=== PATIENT | female | born 1965 | race Caucasian/White ===

== ENCOUNTER 2017-09-16 21:42 | Observation (INO) | payer OTHER ==
[~2017-09-16] VITALS: Ht 162.6 cm; Wt 81.9 kg
[~2017-09-16 21:42] MED LIST: NAPROXEN500 MG PO; PREDNISONE20 MG PO
[2017-09-16 22:23] LABS: HEMATOCRIT 38.9 % (36.0-46.0); HEMOGLOBIN 12.7 G/DL (11.9-15.5); MCH 27.5 PG (29.0-34.0); MCHC 32.6 G/DL (30.0-36.0); MCV 84.4 FL (83-99); PLATELET COUNT 263 K/uL (156-360); RBC DIS.WIDTH-CV 13.4 % (11.8-14.6); RBC DIS.WIDTH-SD 41.3 % (39-53); RED BLOOD COUNT 4.61 M/uL (3.80-5.20); WHITE BLOOD COUNT 9.1 K/uL (4.1-10.2)
[2017-09-16 22:33] LABS: CHLORIDE 106 mEq/L (99-109); POTASSIUM 4.3 mEq/L (3.7-5.4); SODIUM 142 mEq/L (136-147)
[2017-09-16 22:35] LABS: GLUCOSE 95 mg/dL (70-99)
[2017-09-16 22:39] LABS: CREATININE 0.7 mg/dL (0.6-1.3); GFR ESTIMATE (CALCULATED) > 59 mL/min/
[2017-09-16 22:40] LABS: UREA NITROGEN (BUN) 20 mg/dL (9-23)
[2017-09-16 22:45] LABS: TROP-I INTERPRETATION NEGATIVE; TROPONIN-I < 0.01 ng/mL (0.0-0.30)
[2017-09-16 23:17] LABS: ALBUMIN 4.6 g/dL (3.2-4.8)
[2017-09-16 23:19] LABS: TOTAL PROTEIN 7.7 g/dL (6.4-8.3)
[2017-09-16 23:20] LABS: D-DIMER ELISA < 150.00 ng/mLDDU (<230)
[2017-09-16 23:21] LABS: TOTAL BILIRUBIN 0.3 mg/dL (0.0-1.0)
[2017-09-16 23:22] LABS: ALKALINE PHOSPHATASE 118 IU/L (3-129)
[2017-09-16 23:25] LABS: ALT (GPT) 19 IU/L (3-49); AST (GOT) 16 IU/L (2-34); DIRECT BILIRUBIN 0.1 mg/dL (0.0-0.3)
[2017-09-16 23:26] LABS: LIPASE 6 U/L (1.0-51.0)
[2017-09-17] MEDS ORDERED: LOSARTAN POTASS50 MG PO (01:32)
[2017-09-17] MEDS ORDERED: PANTOPRAZOLE SO40 MG PO (01:33)
[2017-09-17] MEDS ORDERED: SUMATRIPTAN SU100 MG PO (01:33)
[2017-09-17] MEDS ORDERED: LO-DOSE ASPIRIN81 M2 PO (01:34)
[2017-09-17 03:05] VITALS: BP 134/74
[2017-09-17 06:58] LABS: TROP-I INTERPRETATION NEGATIVE; TROPONIN-I < 0.01 ng/mL (0.0-0.30)
[2017-09-17 07:28] VITALS: BP 141/77
[2017-09-17 11:32] VITALS: BP 154/89
[2017-09-17 12:46] LABS: TROP-I INTERPRETATION NEGATIVE; TROPONIN-I < 0.01 ng/mL (0.0-0.30)
[2017-09-17 15:23] VITALS: BP 135/77
[2017-09-17 19:00] VITALS: BP 157/85
[2017-09-17 20:03] LABS: TROP-I INTERPRETATION NEGATIVE; TROPONIN-I < 0.01 ng/mL (0.0-0.30)
[2017-09-18 00:02] VITALS: BP 128/79
[2017-09-18 04:22] VITALS: BP 123/67
[2017-09-18 07:47] VITALS: BP 121/65
[2017-09-18 12:39] VITALS: BP 147/65
[2017-09-18] MEDS ORDERED: IMDUR30 MG PO (14:22)
[2017-09-18] MEDS ORDERED: AMLODIPINE BESYL5 MG PO (14:22)
== END 2017-09-18 14:56 | disposition home or self-care (01) ==
LOC: EME 21:42 → ENRESERV 09-17 00:56 → CANRESERV 09-17 00:56 → 5WEST 09-17 01:38 → EDOF 09-17 01:38 → ENRESERV 09-17 01:39 → 5WEST 09-17 02:29
PROVIDERS: Internal Medicine
DX: R07.9 Chest pain, unspecified (principal); I16.0 Hypertensive urgency; I10 Essential (primary) hypertension; G43.909 Migraine, unspecified, not intractable, without status migrainosus; K21.9 Gastro-esophageal reflux disease without esophagitis; M51.36 Other intervertebral disc degeneration, lumbar region; E53.8 Deficiency of other specified B group vitamins; E55.9 Vitamin D deficiency, unspecified; F32.9 Major depressive disorder, single episode, unspecified
CPT/HCPCS: 70450; 70551; 71046; 80048; 80076; 83690; 83880; 84484; 85027; 85379; 93005; 99281; 99285; G0378; J1200; J1644; J2405

== ENCOUNTER 2017-10-10 05:29 | Emergency (ER) | payer OTHER ==
[~2017-10-10] VITALS: Ht 162.6 cm; Wt 79.2 kg
[~2017-10-10 05:29] MED LIST changes: +AMLODIPINE BESYL5 MG PO; +IMDUR30 MG PO; +LO-DOSE ASPIRIN81 M2 PO; +LOSARTAN POTASS50 MG PO; +PANTOPRAZOLE SO40 MG PO; +SUMATRIPTAN SU100 MG PO
[2017-10-10 06:22] LABS: HEMATOCRIT 39.1 % (36.0-46.0); MCH 27.8 PG (29.0-34.0); MCHC 33.2 G/DL (30.0-36.0); MCV 83.7 FL (83-99); PLATELET COUNT 225 K/uL (156-360); RBC DIS.WIDTH-CV 13.4 % (11.8-14.6); RBC DIS.WIDTH-SD 40.8 % (39-53); RED BLOOD COUNT 4.67 M/uL (3.80-5.20); WHITE BLOOD COUNT 7.2 K/uL (4.1-10.2)
[2017-10-10 06:42] LABS: CHLORIDE 106 mEq/L (99-109); POTASSIUM 4.1 mEq/L (3.7-5.4); SODIUM 144 mEq/L (136-147)
[2017-10-10 06:44] LABS: GLUCOSE 110 mg/dL (70-99)
[2017-10-10 06:48] LABS: CREATININE 0.7 mg/dL (0.6-1.3); GFR ESTIMATE (CALCULATED) > 59 mL/min/
[2017-10-10 06:49] LABS: TROP-I INTERPRETATION NEGATIVE; TROPONIN-I < 0.01 ng/mL (0.0-0.30); UREA NITROGEN (BUN) 19 mg/dL (9-23)
[2017-10-10 08:22] LABS: TROP-I INTERPRETATION NEGATIVE; TROPONIN-I < 0.01 ng/mL (0.0-0.30)
[2017-10-10 09:08] VITALS: BP 136/79
== END 2017-10-10 09:15 | disposition home or self-care (01) ==
LOC: EME 05:29
PROVIDERS: Emergency Medicine
DX: R07.9 Chest pain, unspecified (principal); I10 Essential (primary) hypertension; E78.5 Hyperlipidemia, unspecified; G43.909 Migraine, unspecified, not intractable, without status migrainosus; Z79.82 Long term (current) use of aspirin; Z90.49 Acquired absence of other specified parts of digestive tract
CPT/HCPCS: 71046; 80048; 84484; 85027; 93005; 99281; 99285